=== PATIENT | female | born 1955 | race African-American/Black ===

== ENCOUNTER 2018-05-07 12:41 | Emergency (ER) | payer BC ==
[2018-05-07 13:19] VITALS: BP 0/0
--- NOTE | 2018-05-07 13:58 | UC ---
Back Pain HPI - HPI Summary HPI Summary: PT WAS PRESCRIBED AUGMENTIN FOR SINUSITIS ON 04/23/18. SHE HAD NAUSEA WITH THIS MEDICINE SO WAS NOT TAKING IT PRESCRIBED. ON 05/04/18 TOOK A DOSE AND VOMITED. SHE THREW OUT HER BACK AND HAS HAD DEBILITATING PAIN SINCE THEN. SHE ALSO IS C/O NUMBNESS GOING DOWN THE FRONT OF BOTH HER LEGS AND IN HER HIPS WHICH IS NEW SINCE THE ONSET OF THE PAIN. SHE DENIES SADDLE ANESTHESIA. NO LOSS OF BOWEL OR BLADDER CONTROL. - History of Current Complaint Chief Complaint: UCBackPain Stated Complaint: BACK / HIP PAIN Time Seen by Provider: 05/07/18 13:40 Hx Obtained From: Patient, Family/Retirement Administrator - SON Onset/Duration: Sudden Onset, Lasting Days, Still Present Timing: Constant Severity Initially: Moderate Severity Currently: Moderate Pain Intensity: 7 Pain Scale Used: 0-10 Numeric Back Pain: Is Discrete @ - LOW BACK Character: Sharp Aggravating Factor(s): Movement Alleviating Factor(s): Nothing Associated Signs And Symptoms: Positive: Numbness. Negative: Swelling, Redness , Bruising, Bladder Incontinence, Bowel Incontinence - Allergies/Home Medications Allergies/Adverse Reactions: Allergies Allergy/AdvReac Type Severity Reaction Status Date / Time aspirin Allergy Swelling Verified 05/07/18 13:18 Of Face,Lips,& Throat ibuprofen Allergy Swelling Verified 05/07/18 13:18 Of Face,Lips,& Throat PMH/Surg Hx/FS Hx/Imm Hx Endocrine History: Dyslipidemia Cardiovascular History: Hypertension - Surgical History Surgical History: Yes Surgery Procedure, Year, and Place: X2, hysterectomy - Family History Known Family History: Positive: Hypertension - Social History Alcohol Use: Occasionally Substance Use Type: Marijuana Substance Use Comment - Amount & Last Used: sometimes mj hx Smoking Status (MU): Current Every Day Smoker Type: Cigarettes Amount Used/How Often: 1 ppd Household Exposure Type: Cigarettes Review of Systems All Other Systems Reviewed And Are Negative: Yes Constitutional: Positive: Negative Skin: Positive: Negative Respiratory: Positive: Negative Cardiovascular: Positive: Negative Gastrointestinal: Positive: Negative Musculoskeletal: Positive: Arthralgia, Decreased ROM, Myalgia Physical Exam Triage Information Reviewed: Yes Appearance: Well-Nourished, Pain Distress - MODERATE, Obese Vital Signs: Initial Vital Signs Temp 99.8 F 05/07/18 13:10 Pulse 69 05/07/18 13:10 Resp 16 05/07/18 13:10 BP 0/0 05/07/18 13:10 Pulse Ox 98 05/07/18 13:10 Vital Signs Reviewed: Yes Eyes: Positive: Conjunctiva Clear ENT: Positive: Hearing grossly normal Neck: Positive: Supple Respiratory: Positive: No respiratory distress, No accessory muscle use Cardiovascular: Positive: Pulses Normal Abdomen Description: Positive: Soft Musculoskeletal: Positive: No Edema, ROM Limited @ - BACK, Other: - TTP DIFFUSELY ACROSS LOW BACK Neurological: Positive: Alert Psychological: Positive: Age Appropriate Behavior Skin: Negative: Rashes Diagnostics - Radiology L-SPINE XRAYS Radiology Interpretation Completed By: Radiologist Summary of Radiographic Findings: DEGENERATIVE DISC DISEASE AND OSTEOARTHRITIS. LEFT NEPHROLITHIASIS. Back Pain Course/Dx - Course Course Of Treatment: DICUSSED WITH PT TRANSFER TO THE ER FOR FURTHER EVALUATION OF THE NEW NUMBNESS IN HER LEGS. PT DECLINES. I ADVISED THAT I CAN NOT AT ALL EVALUATE THIS SYMPTOM AND THAT IF SHE HAS SPINAL CORD INJURY IT COULD LEAD TO PARALYSIS. PT VERBALIZES UNDERSTANDING AND CONTINUES TO DECLINE ER EVAL. XRAYS SHOWS DEGENERATIVE DISC DISEASE AND OSTEOARTHRITIS. LEFT NEPHROLITHIASIS. WILL TREAT WITH MUSCLE RELAXERS AND HYDROCODONE. PT HAS MOBIC AT HOME. TO ER IF SX WORSEN. - Differential Dx/Diagnosis Provider Diagnosis: Acute low back pain Discharge - Sign-Out/Discharge Documenting (check all that apply): Patient Departure All imaging exams completed and their final reports reviewed: Yes - Discharge Plan Condition: Stable Disposition: HOME Prescriptions: Cyclobenzaprine TAB* [Flexeril TAB*] 10 mg PO BID PRN #30 tab PRN Reason: Pain HYDROcodone/ACETAMIN 5-325 MG* [[place] 5-325 TAB*] 1 tab PO Q6H PRN #12 tab MDD 4 PRN Reason: Pain Patient Education Materials: Low Back Strain (ED) Forms: *Work Release Referrals: Candelaria Bermudez MD [Primary Care Provider] - 2 Weeks Additional Instructions: LUMBAR SPINE XRAYS SHOW DEGENERATIVE DISC DISEASE AND OSTEOARTHRITIS WELL LEFT KIDNEY STONE. NO ACUTE INJURY. LIKELY YOU HAVE MUSCULOSKELETAL PAIN. YOUR SYMPTOMS SHOULD IMPROVE SIGNIFICANTLY OVER THE NEXT 1-2 WEEKS. IF YOU DO NOT IMPROVE EXPECTED FOLLOW-UP WITH YOUR PCP. YOU MAY BENEFIT FROM MORE ADVANCED IMAGING AT THAT TIME. TAKE YOUR MOBIC NEEDED FOR DISCOMFORT. TAKE MUSCLE RELAXER BEFORE BED. HYDROCODONE FOR BREAKTHROUGH PAIN. BE SURE TO GO THROUGH SLOW RANGE OF MOTION AND STRETCHING EXERCISES DAILY YOU ARE ABLE TO PREVENT STIFFENING UP AND MAKING THE DISCOMFORT WORSE. GO TO THE ED WITHOUT FAIL IF YOU DEVELOP WORSENING NUMBNESS/TINGLING IN YOUR LEGS, NUMBNESS IN THE GENITAL REGION, LOSS OF BOWEL/BLADDER CONTROL, INTOLERABLE PAIN OR ANY OTHER CONCERNING SYMPTOMS. - Billing Disposition and Condition Condition: STABLE Disposition: Home
== END 2018-05-07 14:56 | disposition home or self-care (01) ==
LOC: UCEAST 12:41
DX: M54.5 Low back pain (principal); M51.36 Other intervertebral disc degeneration, lumbar region; N20.0 Calculus of kidney; Z88.6 Allergy status to analgesic agent; F17.210 Nicotine dependence, cigarettes, uncomplicated
CPT/HCPCS: 72100; 99212; G0463